=== PATIENT | female | born 1995 | race Hispanic/Latino ===

== ENCOUNTER 2017-01-15 06:43 | Emergency (ER) | payer OTHER ==
[2017-01-15 07:07] LABS: Bilirubin Negative (Negative); Blood, Urine Negative (Negative); Glucose, Urine (Dipstick) Negative (Negative); Ketone, Urine Negative (Negative); Nitrite Negative (Negative); Protein, Urine (Dipstick) Trace mg/dL (Neg-Trace); Urobilinogen 0.2 mg/dL (0.2-1.0)
[2017-01-15] MEDS ORDERED: Ondansetron ODT 4 MG TAB ONE (07:19)
== END 2017-01-15 08:05 | disposition home or self-care (01) ==
LOC: NAV ERS 06:43
DX: R30.0 Dysuria (principal); R11.2 Nausea with vomiting, unspecified; D64.9 Anemia, unspecified
CPT/HCPCS: 81003; 81025; 87086; 99284; Q0162

== ENCOUNTER 2019-12-15 02:57 | Emergency (ER) | payer OTHER, SELFPAY ==
[2019-12-15 03:37] LABS: Bilirubin Negative (Negative); Blood, Urine Large (Negative); Clarity Cloudy (Clear); Glucose, Urine (Dipstick) Negative (Negative); Leukocyte Negative (Negative); Nitrite Negative (Negative); Protein, Urine (Dipstick) > or equal to 300 mg/dL (Neg-Trace); Urobilinogen 0.2 mg/dL (Less than 2)
[2019-12-15 03:39] LABS: RBC/HPF Greater than 50 HPF (0-3)
[2019-12-15 03:40] LABS: Bacteria/HPF 1+ HPF (None Seen); Squamous Epithelial 0-3 HPF (0-3)
[2019-12-15 04:11] LABS: Pregnancy Test - Urine (BHCG) Negative (Negative); Pregu Control Background? CLEAR/WHITE (CLR/WHITE); Pregu Control Bar Appear? YES (CONTROL BAR); Specific Gravity 1.031 (1.002-1.036)
== END 2019-12-15 04:24 | disposition home or self-care (01) ==
LOC: NAV ERS 02:57
DX: R31.9 Hematuria, unspecified (principal); R30.0 Dysuria; D50.9 Iron deficiency anemia, unspecified
CPT/HCPCS: 81003; 81015; 81025; 87086; 99283